=== PATIENT | male | born 1960 | race Caucasian/White ===

== ENCOUNTER 2016-10-23 12:58 | Emergency (ER) | payer OTHER ==
[2016-10-23 13:10] VITALS: TEMP 98.7
[2016-10-23] MEDS ORDERED: Naproxen 550 mg Tab PO STA (13:35)
--- NOTE | 2016-10-23 13:40 | C.PDOC ---
History Of Present Illness 56 year old male presents to the ED with complaints of pain to the right wrist with swelling for a week and a half. Patient is a line welder and right hand dominant. He denies fever, change in sensation, trauma or other complaints at this time. Time Seen by Provider: 10/23/16 13:23 Chief Complaint (Nursing): Finger,Hand,&Wrist History Per: Patient, Family () History/Exam Limitations: no limitations Onset/Duration Of Symptoms: Days (10 days ) Current Symptoms Are (Timing): Still Present Quality: "Pain" Exacerbating Factor(s): Movement Recent travel outside of the [place]: No Past Medical History Reviewed: Historical Data, Nursing Documentation, Vital Signs Vital Signs: Last Vital Signs Temp 98.7 F 10/23/16 13:06 Pulse 77 10/23/16 14:24 Resp 18 10/23/16 14:24 BP 142/75 10/23/16 14:24 Pulse Ox 98 10/23/16 14:24 - [facility] Procedures TETANUS TOXOID ADMINIST (04/30/13) Family History: States: Unknown Family Hx - Social History Hx Tobacco Use: No Hx Alcohol Use: No Hx Substance Use: No - Immunization History Hx Tetanus Toxoid Vaccination: No Review Of Systems Except As Marked, All Systems Reviewed And Found Negative. Constitutional: Negative for: Fever Respiratory: Negative for: Shortness of Breath Musculoskeletal: Positive for: Hand Pain (right wrist pain and swelling) Physical Exam - Physical Exam Appears: Non-toxic, No Acute Distress Skin: Warm, Dry Head: Atraumatic, Normacephalic Eye(s): bilateral: Normal Inspection, EOMI Nose: Normal Oral Mucosa: Moist Neck: Normal ROM, Supple Chest: Symmetrical Respiratory: No Accessory Muscle Use Extremity: Normal ROM, Tenderness ( radial anterior aspect of the right wrist ) , Capillary Refill (good capillary refill, less than two seconds. ), No Swelling , Other (Mobile 1 cm mass to radial anterior aspect of the right wrist that is not erythematus or warm. ) Extremity: Bilateral: Atraumatic, Normal Color And Temperature, Normal ROM Pulses: Left Radial: Normal, Right Radial: Normal Neurological/Psych: Oriented x3, Normal Speech, Normal Cognition, Normal Motor, Normal Sensation ED Course And Treatment O2 Sat by Pulse Oximetry: 97 (room air ) - Other Rad Right wrist X-Ray X-Ray: Viewed By In, Read By Radiologist Progress Note: X-ray of the right wrist was ordered. Patient was given anaprox. Wrist immobilzer was ordered. Pt was instructed to follow up with hand specialist in 1-2 days for re-evaluation. Air Cargo Specialist used to ensure understanding. Disposition - Disposition Referrals: Wesley Vaughan MD [Staff Provider] - Disposition: HOME/ ROUTINE Disposition Time: 14:09 Condition: STABLE Additional Instructions: Vaya a healy mdico o la clnica en 1-3 rojas sin falta, para mas evaluacin. [place] los medicamentos velma indicado. Volver a la lina de emergencia en cualquier momento si los sntomas persisten o empeoran. Prescriptions: Naproxen [Naprosyn] 1 tab PO BID PRN #20 tab PRN Reason: Pain Instructions: Ganglion Cysts (ED) Forms: [employer] (Persian), Work Excuse Print Language: FRENCH - Clinical Impression Clinical Impression: Ganglion cyst - Scribe Statement The provider has reviewed the documentation as recorded by the Scribe Maria Luisa Morales All medical record entries made by the Scribe were at my direction and personally dictated by me. I have reviewed the chart and agree that the record accurately reflects my personal performance of the history, physical exam, medical decision making, and the department course for this patient. I have also personally directed, reviewed, and agree with the discharge instructions and disposition.
[2016-10-23] MEDS ORDERED: Naproxen 550 mg Tab PO ONE (13:44)
[2016-10-23 14:49] VITALS: BP 142/75; PULSE 77; RESP 18
--- NOTE | 2016-10-23 15:45 | RAD ---
PROCEDURE: Right Wrist Radiographs. HISTORY: pain COMPARISON: None available. FINDINGS: BONES: Well corticated ossific density adjacent to the ulna styloid compatible with remote injury. No acute displaced fracture. JOINTS: No dislocation. SOFT TISSUES: Mild increased oblong more focal soft tissue density within the soft tissues at the level above the distal radius in region of concern. Suggest dedicated cross-sectional imaging to assess for soft tissue abnormality. No evidence of radiopaque foreign body OTHER FINDINGS: None. IMPRESSION: Mild increased oblong more focal soft tissue density within the soft tissues at the level above the distal radius in region of concern. Suggest dedicated cross-sectional imaging to assess for soft tissue abnormality.
[2016-10-23 16:44] VITALS: O2SAT 97
== END 2016-10-23 14:36 | disposition home or self-care (01) ==
LOC: C.ER 12:58
DX: M67.431 Ganglion, right wrist (principal)